=== PATIENT | female | born 1950 | race African-American/Black ===

== ENCOUNTER 2017-08-24 14:27 | Outpatient (CLI) | payer MEDICARE | END 2017-08-24 14:28 | disposition home or self-care (01) | LOC: BICMAMMO 14:27 | PROVIDERS: ATTEND Family Medicine | DX: Z12.31 Encounter for screening mammogram for malignant neoplasm of breast (principal); N63.10 Unspecified lump in the right breast, unspecified quadrant; R92.1 Mammographic calcification found on diagnostic imaging of breast | CPT/HCPCS: 77063; 77067 ==